=== PATIENT | male | born 1985 | race African-American/Black ===

== ENCOUNTER 2022-11-04 17:56 | Inpatient (IN) | payer MEDICAID ==
[~2022-11-04] VITALS: Ht 193 cm; Wt 107.5 kg
[2022-11-04] MEDS ORDERED: SODIUM CHLORIDE 0.9% 500 ML IV ONE (19:00)
[2022-11-04 19:05] LABS: BASOPHILS % 0.6 % (0.0-2.0); EOSINOPHILS % 3.9 % (0.0-5.0); HEMATOCRIT. 47.1 % (42.0-52.0); HEMOGLOBIN. 15.5 g/dL (14.0-18.0); LYMPHOCYTES % 26.2 % (20.0-50.0); MEAN CORPUSCULAR HEMOGLOBIN 29.8 pg (28.0-32.0); MEAN CORPUSCULAR VOLUME 90.7 fL (80.0-94.0); MEAN PLATELET VOLUME 8.9 fl (7.4-10.4); MONOCYTES % 6.5 % (2.0-8.0); NEUTROPHILS % 62.8 % (40.0-76.0); PLATELET 189 x1000/uL (130-400); RED CELL DISTRIBUTION WIDTH 14.5 % (11.6-14.6)
[2022-11-04 19:27] LABS: CHLORIDE 102 mEq/L (98-107)
[2022-11-04] MEDS ORDERED: ASPIRIN 325MG EC TABLET PO NR (20:00)
[2022-11-04] MEDS ORDERED: IOHEXOL-350 100 ML BOTTLE ONE (20:10)
[2022-11-04] MEDS ORDERED: ENOXAPARIN 120MG/0.8ML SYR SUBCUT NR (20:30)
[2022-11-04] MEDS ORDERED: ONDANSETRON HCL 4MG/2ML INJ IV PRN (21:45)
[2022-11-04] MEDS ORDERED: ACETAMINOPHEN 325MG TABLET PO PRN ×2 (21:45)
[2022-11-04] MEDS ORDERED: GUAIFENESIN 200MG/10ML SUGAR FREE UDC PO PRN (21:45)
[2022-11-04] MEDS ORDERED: MAGNESIUM/ALUMINUM HYDROXIDE/SIMETHICONE 30ML UDC PO PRN (21:45)
[2022-11-04] MEDS ORDERED: IPRATROPIUM/ALBUTEROL 0.5-3(2.5)MG/3ML NEB NEB PRN (21:45)
[2022-11-04] MEDS ORDERED: CLONIDINE 0.1MG TABLET PO PRN (21:45)
[2022-11-04] MEDS ORDERED: ZOLPIDEM TARTRATE 5MG TABLET PO PRN (21:45)
[2022-11-04] MEDS ORDERED: NITROGLYCERIN 0.4MG TABLET SL SL PRN (21:45)
[2022-11-04] MEDS ORDERED: KETOROLAC 15MG/ML VIAL IV PRN (21:45)
[2022-11-04] MEDS ORDERED: NA PHOS,M-B/NA PHOS,DI-BA ENEMA 118ML PR PRN (21:45)
[2022-11-04] MEDS: DEXT 5%/LACTATED RINGERS 1,000 ML IV SCH (22:21)
[2022-11-04 23:20] LABS: CREATINE KINASE MB FRACTION 3.4 ng/mL (0.5-3.6)
[2022-11-04 23:21] LABS: ETHANOL BLOOD < 10 mg/dL; T4 FREE 0.89 ng/dL (0.76-1.46); TOTAL IRON BINDING CAPACITY 362 ug/dL (250-450)
[2022-11-04 23:44] LABS: VITAMIN B12 SERUM 1293 pg/mL (211-911)
[2022-11-05] VITALS (16 sets, daily range): BP systolic 110–133; BP diastolic 54–108
[2022-11-05 04:35] LABS: BASOPHILS % 1.1 % (0.0-2.0); EOSINOPHILS % 1.4 % (0.0-5.0); HEMATOCRIT. 43.3 % (42.0-52.0); HEMOGLOBIN. 14.6 g/dL (14.0-18.0); LYMPHOCYTES % 39.1 % (20.0-50.0); MEAN CORPUSCULAR HEMOGLOBIN 29.9 pg (28.0-32.0); MEAN CORPUSCULAR VOLUME 88.7 fL (80.0-94.0); MEAN PLATELET VOLUME 8.3 fl (7.4-10.4); MONOCYTES % 9.3 % (2.0-8.0); NEUTROPHILS % 49.1 % (40.0-76.0); PLATELET 181 x1000/uL (130-400); RED BLOOD CELL COUNT 4.89 mill/uL (4.7-6.1); RED CELL DISTRIBUTION WIDTH 14.6 % (11.6-14.6)
[2022-11-05 04:43] LABS: CHLORIDE 106 mEq/L (98-107)
[2022-11-05 04:51] LABS: CREATINE KINASE MB FRACTION 4.5 ng/mL (0.5-3.6); PHOSPHORUS 3.7 mg/dL (2.5-4.9)
[2022-11-05 04:59] LABS: INR 1.1; PROTHROMBIN TIME 11.3 sec (9.6-11.0)
[2022-11-05 08:41] LABS: *AMPHETAMINES SCREEN URINE NEGATIVE (NEGATIVE); *BARBITURATES SCREEN URINE NEGATIVE (NEGATIVE); *BENZODIAZEPINES SCREEN URINE NEGATIVE (NEGATIVE); *COCAINE SCREEN URINE NEGATIVE (NEGATIVE); CANNABINOID URINE SCREEN NEGATIVE (NEGATIVE); METHADONE URINE SCREEN NEGATIVE (NEGATIVE); OPIATES URINE SCREEN NEGATIVE (NEGATIVE); PHENCYCLIDINE URINE SCREEN NEGATIVE (NEGATIVE)
[2022-11-05] MEDS: PANTOPRAZOLE SODIUM 40 MG/VIAL IV SCH (09:24)
[2022-11-05] MEDS ORDERED: ENOXAPARIN 120MG/0.8ML SYR SUBCUT SCH (10:00)
[2022-11-05] MEDS: DEXT 5%/LACTATED RINGERS 1,000 ML IV SCH (12:01)
[2022-11-05] MEDS: ENOXAPARIN 120MG/0.8ML SYR SUBCUT SCH (21:56)
[2022-11-06] VITALS (30 sets, daily range): BP systolic 83–130; BP diastolic 33–97
[2022-11-06] MEDS: DEXT 5%/LACTATED RINGERS 1,000 ML IV SCH ×2 (00:12→15:58)
[2022-11-06 05:29] LABS: BASOPHILS % 0.6 % (0.0-2.0); EOSINOPHILS % 5.4 % (0.0-5.0); HEMATOCRIT. 42.2 % (42.0-52.0); LYMPHOCYTES % 50.2 % (20.0-50.0); MEAN CORPUSCULAR VOLUME 90.2 fL (80.0-94.0); MEAN PLATELET VOLUME 8.7 fl (7.4-10.4); MONOCYTES % 11.2 % (2.0-8.0); NEUTROPHILS % 32.6 % (40.0-76.0); PLATELET 177 x1000/uL (130-400); RED BLOOD CELL COUNT 4.68 mill/uL (4.7-6.1); RED CELL DISTRIBUTION WIDTH 14.3 % (11.6-14.6)
[2022-11-06 05:47] LABS: CHLORIDE 105 mEq/L (98-107)
[2022-11-06] MEDS: PANTOPRAZOLE SODIUM 40 MG/VIAL IV SCH (09:08)
[2022-11-06] MEDS: ENOXAPARIN 120MG/0.8ML SYR SUBCUT SCH ×2 (09:09→21:26)
[2022-11-07] VITALS (12 sets, daily range): BP systolic 109–146; BP diastolic 60–90
[2022-11-07] MEDS: DEXT 5%/LACTATED RINGERS 1,000 ML IV SCH ×2 (03:03→09:36)
[2022-11-07 07:21] LABS: BASOPHILS % 0.4 % (0.0-2.0); HEMATOCRIT. 38.5 % (42.0-52.0); LYMPHOCYTES % 56.7 % (20.0-50.0); MEAN CORPUSCULAR HEMOGLOBIN 30.3 pg (28.0-32.0); MEAN CORPUSCULAR VOLUME 89.8 fL (80.0-94.0); MEAN PLATELET VOLUME 8.9 fl (7.4-10.4); MONOCYTES % 7.8 % (2.0-8.0); NEUTROPHILS % 27.1 % (40.0-76.0); PLATELET 170 x1000/uL (130-400); RED BLOOD CELL COUNT 4.29 mill/uL (4.7-6.1); RED CELL DISTRIBUTION WIDTH 14.2 % (11.6-14.6)
[2022-11-07 07:39] LABS: CHLORIDE 106 mEq/L (98-107)
[2022-11-07] MEDS: ENOXAPARIN 120MG/0.8ML SYR SUBCUT SCH ×2 (09:35→21:32)
[2022-11-07] MEDS: PANTOPRAZOLE SODIUM 40 MG/VIAL IV SCH (09:35)
[2022-11-08] VITALS (8 sets, daily range): BP systolic 123–131; BP diastolic 76–85
[2022-11-08 06:30] LABS: BASOPHILS % 0.9 % (0.0-2.0); EOSINOPHILS % 9.4 % (0.0-5.0); HEMATOCRIT. 37.9 % (42.0-52.0); HEMOGLOBIN. 12.6 g/dL (14.0-18.0); LYMPHOCYTES % 50.1 % (20.0-50.0); MEAN CORPUSCULAR HEMOGLOBIN 29.7 pg (28.0-32.0); MEAN CORPUSCULAR VOLUME 89.7 fL (80.0-94.0); MEAN PLATELET VOLUME 8.8 fl (7.4-10.4); MONOCYTES % 8.6 % (2.0-8.0); PLATELET 171 x1000/uL (130-400); RED BLOOD CELL COUNT 4.23 mill/uL (4.7-6.1); RED CELL DISTRIBUTION WIDTH 14.2 % (11.6-14.6)
[2022-11-08 07:26] LABS: CHLORIDE 105 mEq/L (98-107)
[2022-11-08] MEDS ORDERED: OMEP20CA14 MT (08:22)
[2022-11-08] MEDS ORDERED: LOV120 SUBCUT (08:22)
[2022-11-08] MEDS ORDERED: FAMOTIDINE 20MG/2ML VIAL IV SCH (09:00)
[2022-11-08] MEDS: ENOXAPARIN 120MG/0.8ML SYR SUBCUT SCH (09:16)
[2022-11-08 17:10] LABS: PROTEIN C FUNCTIONAL 115 % (73-180)
[2022-11-08] MEDS ORDERED: FAMOTIDINE 20MG TABLET PO SCH (21:00)
== END 2022-11-08 15:00 | disposition home or self-care (01) | DRG 134 ==
LOC: ER 17:56 → EDBEDREQ 21:39 → EDBEDREQSVC 21:39 → MICUSO 23:51 → CVICU 11-05 10:43 → 5EST 11-06 20:10
PROVIDERS: ADMIT Internal Medicine; ATTEND Internal Medicine
DX: I26.92 Saddle embolus of pulmonary artery without acute cor pulmonale (principal); I21.A1 Myocardial infarction type 2; E83.41 Hypermagnesemia; I82.432 Acute embolism and thrombosis of left popliteal vein; R16.0 Hepatomegaly, not elsewhere classified; Z20.822 Contact with and (suspected) exposure to COVID-19; E03.8 Other specified hypothyroidism; R73.03 Prediabetes; R74.01 Elevation of levels of liver transaminase levels; Z79.01 Long term (current) use of anticoagulants; Z86.16 Personal history of COVID-19
CPT/HCPCS: 36415; 71045; 71275; 80048; 80053; 80076; 80305; 80320; 81403; 81407; 81479; 82533; 82550; 82553; 82607; 82746; 83036; 83540; 83550; 83735; 83880; 84100; 84439; 84443; 84484; 85025; 85303; 85306; 85379; 87426; 93005; 93306; 93308; 93970; 99291; C9113; J1650; J3490; J7040; Q9967; G0480

== ENCOUNTER 2025-07-05 08:45 | Emergency (ER) | payer MEDICAID ==
[~2025-07-05] VITALS: Ht 193 cm; Wt 105.0 kg
[~2025-07-05 08:45] MED LIST: LOV120 SUBCUT; OMEP20CA14 MT
[2025-07-05 08:50] VITALS: O2SAT 98
[2025-07-05 09:09] LABS: CLARITY URINE CLEAR (CLEAR); COLOR URINE YELLOW (YELLOW); GLUCOSE URINE NEGATIVE (NEGATIVE); KETONES URINE NEGATIVE (NEGATIVE); LEUKOCYTE ESTERASE URINE NEGATIVE (NEGATIVE); NITRITE URINE NEGATIVE (NEGATIVE); OCCULT BLOOD URINE NEGATIVE (NEGATIVE); PH URINE 5.5 (4.5-8.0); PROTEIN URINE NEGATIVE (NEGATIVE); SPECIFIC GRAVITY URINE 1.030 (1.005-1.030); UROBILINOGEN URINE 0.2 E.U./dL (0.2-1.0)
[2025-07-05 09:44] VITALS: BP 122/78; PULSE 72; RESP 16; TEMP 36.9; O2SAT 98
== END 2025-07-05 09:44 | disposition home or self-care (01) ==
LOC: ER 08:45
DX: R31.9 Hematuria, unspecified (principal); E03.9 Hypothyroidism, unspecified; Z79.899 Other long term (current) drug therapy
CPT/HCPCS: 81003; 99283